=== PATIENT | female | born 1940 | race Two or more races ===

== ENCOUNTER 2018-03-25 07:26 | Day surgery (SDC) | payer OTHER ==
[~2018-03-25] VITALS: Ht 165.1 cm; Wt 52.2 kg
[2018-03-25] VITALS (9 sets, daily range): BP systolic 134–163; BP diastolic 65–84
[~2018-03-25 07:26] MED LIST: BSS 15ml BTL ONE; BSS 500ml btl ONE; Dexamethasone 4mg/ml vial ONE; EPINEPHrine 1mg/1ml Amp ONE; Lidocaine 1% MPF 10mg/ml 5ml ONE; Povidone-Iodine 5% opth solution ONE; Sodium Hyaluronate 14 mg/ml 0.85ml ONE
--- NOTE | 2018-03-25 07:40 | Pre-Procedure Note/Attestation ---
Pre-Procedure Note/Attestation Complete Prior to Procedure Planned Procedure: left Procedure Narrative: cataract extraction with implant left eye Indications for Procedure Pre-Operative Diagnosis: cataract left eye Attestation I attest that I discussed the nature of the procedure; its benefits; risks and complications; and alternatives (and the risks and benefits of such alternatives ), prior to the procedure, with the patient (or the patient's legal ict sales representative). I attest that, if there was a reasonable possibility of needing a blood transfusion, the patient (or the patient's legal ict sales representative) was given the [facility] standardized written summary, pursuant to the Robert Carmenza Blood Safety Act ([place] Health and Safety Code # 1645, as amended). I attest that I re-evaluated the patient just prior to the surgery and that there has been no change in the patient's H&P, except as documented below: Luis Chung MD Mar 25, 2018 07:40
[2018-03-25] MEDS ORDERED: Akten 3.5% 1ml Btl ONE (08:03)
[2018-03-25] MEDS ORDERED: Vigamox Opth Soln 3ml ONE (08:04)
[2018-03-25] MEDS ORDERED: Tropicamide 1% Opth 15ml Soln ONE (08:04)
[2018-03-25] MEDS ORDERED: Flurbiprofen 0.03% Opth Sol 2.5ml ONE (08:04)
[2018-03-25] MEDS ORDERED: Phenylephrine 2.5% Op 2ml Soln ONE (08:04)
[2018-03-25] MEDS ORDERED: Tobradex Opth Susp 2.5ml ONE (08:04)
[2018-03-25] MEDS: Vigamox Opth Soln 3ml LEFT EYE SCH ×3 (08:07→08:39)
[2018-03-25] MEDS: Flurbiprofen 0.03% Opth Sol 2.5ml LEFT EYE SCH ×3 (08:08→08:39)
[2018-03-25] MEDS: Tobradex Opth Susp 2.5ml LEFT EYE SCH ×3 (08:08→08:39)
[2018-03-25] MEDS: Tropicamide 1% Opth 15ml Soln LEFT EYE SCH ×3 (08:09→08:38)
[2018-03-25] MEDS: Phenylephrine 2.5% Op 2ml Soln LEFT EYE SCH ×3 (08:10→08:38)
[2018-03-25] MEDS: Akten 3.5% 1ml Btl LEFT EYE SCH ×3 (08:10→08:40)
[2018-03-25] MEDS ORDERED: LR 1000ml ONE (09:00)
[2018-03-25] MEDS ORDERED: Sterile Water Irrig 1000ml IRRIG ONE (09:00)
[2018-03-25] MEDS ORDERED: ASPIRIN EC81 MG ORAL (09:00)
[2018-03-25] MEDS ORDERED: Propofol 200mg/20ml IV ONE (09:00)
[2018-03-25] MEDS ORDERED: NS Irrig 1000ml ONE (09:00)
[2018-03-25] MEDS ORDERED: MULTIVITAMINS1 EA11 ORAL (09:01)
[2018-03-25] MEDS ORDERED: HYDROCHLOROTHIA25 MG ORAL (09:03)
[2018-03-25] MEDS ORDERED: METOPROLOL SUCC25 MG ORAL (09:07)
--- NOTE | 2018-03-25 09:09 | Anethesia Preoperative Eval ---
Anesthesia Pre-op PMH/ROS General Date of Evaluation: Mar 25, 2018 Time of Evaluation: 09:06 Anesthesiologist: Shahnaz Adkins CRNA ASA Score: ASA 1 Mallampati Score Class I : Soft palate, uvula, fauces, pillars visible Class II: Soft palate, uvula, fauces visible Class III: Soft palate, base of uvula visible Class IV: Only hard plate visible Mallampati Classification: Class II Surgeon: Sheldon Diagnosis: LEFT eye cataract Surgical Procedure: LEFT eye catract extraction IOL Anesthesia History: none Family History: no anesthesia problems Allergies: Coded Allergies: PEANUT (Verified Allergy, Intermediate, throat closes up, 03/25/18) SULFA (SULFONAMIDE ANTIBIOTICS) (Verified Allergy, Intermediate, rash; throat closes up, 03/25/18) Past Medical History Cardiovascular: Reports: HTN Anesthesia Pre-op Phys. Exam Physician Exam Last Vital Signs Date Time Temp Pulse Resp B/P (MAP) Pulse Ox O2 Delivery O2 Flow Rate FiO2 03/25/18 08:51 Room Air 03/25/18 08:29 97.3 90 18 163/78 (106) 97 97.3 Airway Exam Mallampati Score: Class I Shahnaz March CRNA Mar 25, 2018 09:09
[2018-03-25] MEDS ORDERED: ATORVASTATIN CA80 MG ORAL (09:10)
[2018-03-25] MEDS ORDERED: Evista PO (09:10)
[2018-03-25] MEDS ORDERED: Midazolam 2mg/2ml Inj ONE (09:11)
[2018-03-25] MEDS ORDERED: Plendil PO (09:11)
[2018-03-25] MEDS ORDERED: fentaNYL 100 mcg/2 mL IV ONE (09:11)
--- NOTE | 2018-03-25 09:40 | Brief Operative Note ---
Immediate Post Operative Note Operative Note Pre-op Diagnosis: cataract left eye Procedure: phacoemulsification of cataract with implant left eye Post-op Diagnosis: same as pre-op Surgeon: luis carlson Veneer Marker: none Anesthesiologist: shelley bar crna Anesthesia: MAC Specimen: none Complications: none Condition: stable Fluids: none Estimated Blood Loss: none Drains: none Implant(s) used?: Yes Luis Carlson MD Mar 25, 2018 09:40
--- NOTE | 2018-03-25 09:45 | Immediate Post-Op Evaluation ---
Immediate Post-Op Evalulation Immediate Post-Op Evalulation Procedure: LEFT eye cataract extration, IOL Date of Evaluation: Mar 25, 2018 Time of Evaluation: 09:43 IV Fluids: LR Blood Products: 300 Estimated Blood Loss: 0 Urinary Output: n/a Blood Pressure Systolic: 161 Blood Pressure Diastolic: 65 Pulse Rate: 78 Respiratory Rate: 22 O2 Sat by Pulse Oximetry: 98 Temperature (Fahrenheit): 98 Nausea: No Vomiting: No Complications none Patient Status: awake Hydration Status: adequate Shahnaz Macrh CRNA Mar 25, 2018 09:45
--- NOTE | 2018-03-25 10:28 | 48 Hour Post Anesthesia Eval ---
Post Anesthesia Evaluation Procedure: LEFT eye cataract extration, IOL Date of Evaluation: Mar 25, 2018 Time of Evaluation: 10:26 Blood Pressure Systolic: 160 0: 72 Pulse Rate: 74 Respiratory Rate: 22 Temperature (Fahrenheit): 97.8 O2 Sat by Pulse Oximetry: 96 Airway: patent Nausea: No Vomiting: No Pain Intensity: 0 Hydration Status: adequate Cardiopulmonary Status: VSS, no distress Mental Status/LOC: patient returned to baseline Follow-up Care/Observations: none Post-Anesthesia Complications: none Follow-up care needed: ready to discharge Shahnaz March CRNA Mar 25, 2018 10:28
--- NOTE | 2018-03-25 16:30 | Operative Note - Dictated ---
DATE OF OPERATION: 03/25/2018 PREOPERATIVE DIAGNOSIS: Cataract, left eye. POSTOPERATIVE DIAGNOSIS: Cataract, left eye. PROCEDURE: Phacoemulsification cataract of the left eye with placement of posterior chamber intraocular lens. SURGEON: uLis Chung M.D. FOUR H CLUB AGENT: None. ANESTHESIA: MAC/topical. ANESTHESIOLOGIST: , REEL CART OPERATOR INDICATION FOR PROCEDURE: Poor vision, left eye. DESCRIPTION OF FINDINGS: Nuclear sclerotic and cortical cataract, left eye. DESCRIPTION OF PROCEDURE: The patient received a topical anesthetic block consisting of 3.5% Akten eye drops. The eye was prepped and draped in usual manner. A lid speculum was placed. An operating Zeiss microscope was positioned. A temporal corneal groove was made with the janet blade. A SuperSharp blade made a stab incision at the 6 o'clock position. A 0.1 mL of 1% nonpreserved intracameral lidocaine was injected. Healon was instilled into the anterior chamber and a 2.5/2.8 mm trapezoidal janet was used to complete the temporal corneal wound. A cystotome was used to create an anterior capsular flap. Utrata forceps were used to complete the capsulorrhexis. BSS on a cannula was used to hydrodissect the nucleus. The lens nucleus phacoemulsified in a phaco-fracture technique. Remaining cortical material was removed with the I/A and the posterior capsule was polished with the I/A on Cap vac. Healon was instilled in a capsular bag and anterior chamber and an Cook foldable one-piece pre-loaded posterior chamber intraocular lens model PCB00, power 20.0 diopter, serial #[id number] was placed in the capsular bag. The I/A tip was used to remove the Healon and position the lens. The wound edge was hydrated with BSS and a blunt-tipped cannula. The wound was checked and found to be watertight. The lid speculum was removed and a drop of TobraDex and Vigamox was placed. A clear plastic shield was taped over the eye. The patient tolerated the procedure well and left the operating room in good condition. Luis Chung M.D. ([facility] [place]) DR: MONICA JOB#: [id number] CC:
== END 2018-03-25 10:30 | disposition home or self-care (01) ==
LOC: SUR 07:26
DX: H25.812 Combined forms of age-related cataract, left eye (principal); I10 Essential (primary) hypertension; E78.5 Hyperlipidemia, unspecified; M81.0 Age-related osteoporosis without current pathological fracture; F17.210 Nicotine dependence, cigarettes, uncomplicated; L57.0 Actinic keratosis; L81.4 Other melanin hyperpigmentation; J44.9 Chronic obstructive pulmonary disease, unspecified; E78.00 Pure hypercholesterolemia, unspecified; R73.03 Prediabetes; E83.52 Hypercalcemia; Z90.10 Acquired absence of unspecified breast and nipple; Z85.3 Personal history of malignant neoplasm of breast; Z88.2 Allergy status to sulfonamides; Z91.010 Allergy to peanuts; Z79.82 Long term (current) use of aspirin
CPT/HCPCS: 66984; J0171; J1100; J2250; J2704; J3010; J7120; V2632; 94003; 94150

== ENCOUNTER 2018-05-27 05:42 | Day surgery (SDC) | payer OTHER ==
[2018-05-27] VITALS (8 sets, daily range): BP systolic 142–163; BP diastolic 69–89
[~2018-05-27] VITALS: Ht 30.5 cm; Wt 0.5 kg
--- NOTE | 2018-05-27 05:41 | Pre-Procedure Note/Attestation ---
Pre-Procedure Note/Attestation Complete Prior to Procedure Planned Procedure: right Procedure Narrative: cataract extraction with implant right eye Indications for Procedure Pre-Operative Diagnosis: cataract right eye Attestation I attest that I discussed the nature of the procedure; its benefits; risks and complications; and alternatives (and the risks and benefits of such alternatives ), prior to the procedure, with the patient (or the patient's legal mechanical service representative). I attest that, if there was a reasonable possibility of needing a blood transfusion, the patient (or the patient's legal mechanical service representative) was given the [facility] standardized written summary, pursuant to the Robert Leal Blood Safety Act ([place] Health and Safety Code # 1645, as amended). I attest that I re-evaluated the patient just prior to the surgery and that there has been no change in the patient's H&P, except as documented below: Luis Chung MD May 27, 2018 05:41
[~2018-05-27 05:42] MED LIST changes: +ASPIRIN EC81 MG ORAL; +ATORVASTATIN CA80 MG ORAL; -BSS 15ml BTL ONE; -BSS 500ml btl ONE; -Dexamethasone 4mg/ml vial ONE; -EPINEPHrine 1mg/1ml Amp ONE; +Evista PO; +HYDROCHLOROTHIA25 MG ORAL; -Lidocaine 1% MPF 10mg/ml 5ml ONE; +METOPROLOL SUCC25 MG ORAL; +MULTIVITAMINS1 EA11 ORAL; +Plendil PO; -Povidone-Iodine 5% opth solution ONE; -Sodium Hyaluronate 14 mg/ml 0.85ml ONE
[2018-05-27] MEDS ORDERED: Tropicamide 1% Opth 15ml Soln ONE (06:30)
[2018-05-27] MEDS ORDERED: Phenylephrine 2.5% Op 2ml Soln ONE (06:30)
[2018-05-27] MEDS ORDERED: Akten 3.5% 1ml Btl ONE (06:30)
[2018-05-27] MEDS ORDERED: Tobradex Opth Susp 2.5ml ONE (06:30)
[2018-05-27] MEDS ORDERED: Flurbiprofen 0.03% Opth Sol 2.5ml ONE (06:31)
[2018-05-27] MEDS ORDERED: Vigamox Opth Soln 3ml ONE (06:31)
[2018-05-27] MEDS: Tropicamide 1% Opth 15ml Soln RIGHT EYE SCH ×3 (06:50→07:10)
[2018-05-27] MEDS: Phenylephrine 2.5% Op 2ml Soln RIGHT EYE SCH ×3 (06:51→07:10)
[2018-05-27] MEDS: Flurbiprofen 0.03% Opth Sol 2.5ml RIGHT EYE SCH ×3 (06:51→07:10)
[2018-05-27] MEDS: Akten 3.5% 1ml Btl RIGHT EYE SCH ×3 (06:51→07:10)
[2018-05-27] MEDS: Tobradex Opth Susp 2.5ml RIGHT EYE SCH ×3 (06:51→07:10)
[2018-05-27] MEDS: Vigamox Opth Soln 3ml RIGHT EYE SCH ×3 (06:52→07:10)
[2018-05-27] MEDS ORDERED: EPINEPHrine 1mg/1ml Amp ONE (07:02)
[2018-05-27] MEDS ORDERED: Lidocaine 1% MPF 10mg/ml 5ml ONE (07:02)
[2018-05-27] MEDS ORDERED: Povidone-Iodine 5% opth solution ONE (07:03)
[2018-05-27] MEDS ORDERED: Dexamethasone 4mg/ml vial ONE (07:03)
[2018-05-27] MEDS ORDERED: BSS 500ml btl ONE (07:03)
[2018-05-27] MEDS ORDERED: acetaZOLAMIDE 500mg Inj ONE (07:03)
[2018-05-27] MEDS ORDERED: Carbachol 0.01% Op Soln 1.5ml vial ONE (07:03)
[2018-05-27] MEDS ORDERED: BSS 15ml BTL ONE (07:03)
[2018-05-27] MEDS ORDERED: Sodium Hyaluronate 14 mg/ml 0.85ml ONE (07:04)
[2018-05-27] MEDS ORDERED: Midazolam 2mg/2ml Inj ONE (07:05)
[2018-05-27] MEDS ORDERED: fentaNYL 100 mcg/2 mL IV ONE (07:05)
[2018-05-27] MEDS ORDERED: Propofol 200mg/20ml IV ONE (07:05)
[2018-05-27] MEDS ORDERED: NS Irrig 1000ml ONE (07:30)
[2018-05-27] MEDS ORDERED: Sterile Water Irrig 1000ml IRRIG ONE (07:30)
[2018-05-27] MEDS ORDERED: LR 1000ml ONE (07:30)
--- NOTE | 2018-05-27 07:34 | Anethesia Preoperative Eval ---
Anesthesia Pre-op PMH/ROS General Date of Evaluation: May 27, 2018 Time of Evaluation: 07:32 Anesthesiologist: Rere ASA Score: ASA 3 Mallampati Score Class I : Soft palate, uvula, fauces, pillars visible Class II: Soft palate, uvula, fauces visible Class III: Soft palate, base of uvula visible Class IV: Only hard plate visible Mallampati Classification: Class II Surgeon: Sheldon Diagnosis: R eye cataract Surgical Procedure: R eye cataract extraction Anesthesia History: none Social History: current smoker Family History: no anesthesia problems Allergies: Coded Allergies: PEANUT (Verified Allergy, Intermediate, throat closes up, 03/25/18) SULFA (SULFONAMIDE ANTIBIOTICS) (Verified Allergy, Intermediate, rash; throat closes up, 03/25/18) Medications: see eMAR Patient NPO?: Yes Past Medical History Cardiovascular: Reports: HTN; Denies: CAD, [place], valve dz, arrhythmia, other Pulmonary: Reports: COPD Gastrointestinal/Genitourinary: Reports: GERD; Denies: CRI, ESRD, other Neurologic/Psychiatric: Reports: depression/anxiety; Denies: dementia, CVA, TIA, other Endocrine: Denies: DM, hypothyroidism, steroids, other HEENT: Reports: cataract (L), cataract (R) - s/p Sx Hematology/Immune: Reports: other - H/o breast CA s/p Sx and chemo; Denies: anemia, DVT, bleeding disorder Musculoskeletal/Integumentary: Reports: DJD; Denies: OA, RA, DDD, edema, other PMH Narrative: as above PSxH Narrative: L eye cataract, Mastectomy Anesthesia Pre-op Phys. Exam Physician Exam Last Vital Signs Date Time Temp Pulse Resp B/P (MAP) Pulse Ox O2 Delivery O2 Flow Rate FiO2 05/27/18 06:41 Room Air 05/27/18 06:24 98.3 84 18 152/78 97 98.3 Constitutional: NAD Neurologic: CN 2-12 intact Cardiovascular: RRR, no M/R/G Respiratory: CTA Airway Exam Mallampati Score: Class II MO: full Neck: stiff ROM: limited Teeth: intact Dentures: no upper, no lower Anesthesia Pre-op A/P Labs see chart Risk Assessment & Plan Assessment: ASA 3 Plan: MAC Status Change Before Surgery: No Pre-Antibiotics Drug: none Americo Jernigan MD May 27, 2018 07:34
[2018-05-27] MEDS ORDERED: LR 1000ml 1,000 ML IVLG SCH (08:01)
[2018-05-27] MEDS ORDERED: fentaNYL 100 mcg/2 mL IV PRN (08:15)
[2018-05-27] MEDS ORDERED: DiphenhydrAMINE 50mg/ml Inj IVP PRN (08:15)
--- NOTE | 2018-05-27 08:45 | Immediate Post-Op Evaluation ---
Immediate Post-Op Evalulation Immediate Post-Op Evalulation Procedure: R eye cataract extraction with IOL Date of Evaluation: May 27, 2018 Time of Evaluation: 08:08 IV Fluids: 200 Blood Products: none Estimated Blood Loss: none Urinary Output: none Blood Pressure Systolic: 156 Blood Pressure Diastolic: 78 Pulse Rate: 84 Respiratory Rate: 22 O2 Sat by Pulse Oximetry: 98 Temperature (Fahrenheit): 97.6 Pain Score (1-10): 1 Nausea: No Vomiting: No Complications none Patient Status: awake, patent, none Hydration Status: adequate Americo Jernigan MD May 27, 2018 08:45
--- NOTE | 2018-05-27 09:00 | Brief Operative Note ---
Immediate Post Operative Note Operative Note Pre-op Diagnosis: cataract right eye Procedure: phacoemulsification of cataract with implant left eye Post-op Diagnosis: same as pre-op Surgeon: luis carlson Pressing Machine Operator: none Anesthesiologist: deborah bolden md Anesthesia: MAC Specimen: none Complications: none Condition: stable Fluids: none Estimated Blood Loss: none Drains: none Implant(s) used?: Yes Luis Carlson MD May 27, 2018 09:00
--- NOTE | 2018-05-27 09:10 | 48 Hour Post Anesthesia Eval ---
Post Anesthesia Evaluation Procedure: R eye cataract extraction with IOL Date of Evaluation: May 27, 2018 Time of Evaluation: 09:09 Blood Pressure Systolic: 142 0: 78 Pulse Rate: 82 Respiratory Rate: 20 Temperature (Fahrenheit): 97.6 O2 Sat by Pulse Oximetry: 98 Airway: patent Nausea: No Vomiting: No Pain Intensity: 1 Hydration Status: adequate Cardiopulmonary Status: stable Mental Status/LOC: patient returned to baseline Follow-up Care/Observations: n/a Post-Anesthesia Complications: none Follow-up care needed: ready to discharge Americo Jernigan MD May 27, 2018 09:10
--- NOTE | 2018-05-27 19:00 | Operative Note - Dictated ---
DATE OF OPERATION: 05/27/2018 PREOPERATIVE DIAGNOSIS: Nuclear sclerotic and cortical cataract, right eye. POSTOPERATIVE DIAGNOSIS: Nuclear sclerotic and cortical cataract, right eye. PROCEDURE: Phacoemulsification of cataract of right eye with placement of posterior chamber intraocular lens. SURGEON: Luis Chung M.D. ([facility] [place] WATER TREATMENT SPECIALIST: None. ANESTHESIA: MAC/topical. ANESTHESIOLOGIST: Americo Jernigan M.D. INDICATION FOR PROCEDURE: Poor vision, right eye. DESCRIPTION OF FINDINGS: Dense nuclear sclerotic and cortical cataract, right eye. DESCRIPTION OF PROCEDURE: The patient received a topical anesthetic block consisting of 3.5% Akten eyedrops. The eye was then prepped and draped in usual manner. A lid speculum was placed. An operating Zeiss microscope was positioned. The temporal corneal groove was made with a janet blade. A SuperSharp blade made a stab incision at the 12 o'clock position. A 0.1 mL of 1% nonpreserved intracameral lidocaine was injected. Healon was instilled into the anterior chamber and a 2.5/2.8 mm trapezoidal janet blade was used to complete the temporal corneal wound. A cystotome was used to create an anterior capsular flap. Utrata forceps were used to complete the capsulorrhexis. BSS on a cannula was used to hydrodissect the nucleus. The lens nucleus was phacoemulsified in a phaco-fracture technique. Remaining cortical material was removed with the I/A and the posterior capsule was polished with the I/A on Cap vac. Healon was instilled in a capsular bag and anterior chamber, and an Cook foldable one-piece preloaded posterior chamber intraocular lens model PCB00, power 21.0 diopter, serial #[id number] was placed in the capsular bag. The I/A tip was used to remove the Healon and position the lens. The wound edge was hydrated with BSS and a blunt-tipped cannula. The wound was checked and found to be watertight. The lid speculum was removed and a drop of TobraDex and Vigamox were placed. A clear plastic shield was taped over the eye. The patient tolerated the procedure well and left the operating room in good condition. Luis Chung M.D. ([facility]) DR: Kurt JOB#: [id number] CC: ALEX
[2018-05-28] MEDS ORDERED: Vigamox Opth Soln 3ml RIGHT EYE SCH (07:00)
[2018-05-28] MEDS ORDERED: Tobradex Opth Susp 2.5ml RIGHT EYE SCH (07:00)
[2018-05-28] MEDS ORDERED: Flurbiprofen 0.03% Opth Sol 2.5ml RIGHT EYE SCH (07:00)
[2018-05-28] MEDS ORDERED: Tropicamide 1% Opth 15ml Soln RIGHT EYE SCH (07:00)
[2018-05-28] MEDS ORDERED: Akten 3.5% 1ml Btl RIGHT EYE SCH (07:00)
[2018-05-28] MEDS ORDERED: Phenylephrine 2.5% Op 2ml Soln RIGHT EYE SCH (07:00)
== END 2018-05-27 09:10 | disposition home or self-care (01) ==
LOC: SUR 05:42
DX: H25.811 Combined forms of age-related cataract, right eye (principal); I10 Essential (primary) hypertension; M81.0 Age-related osteoporosis without current pathological fracture; J44.9 Chronic obstructive pulmonary disease, unspecified; E78.00 Pure hypercholesterolemia, unspecified; K21.9 Gastro-esophageal reflux disease without esophagitis; F32.9 Major depressive disorder, single episode, unspecified; F41.9 Anxiety disorder, unspecified; M19.90 Unspecified osteoarthritis, unspecified site; L81.4 Other melanin hyperpigmentation; L57.0 Actinic keratosis; Z85.3 Personal history of malignant neoplasm of breast; Z88.2 Allergy status to sulfonamides; Z91.010 Allergy to peanuts
CPT/HCPCS: 66984; J0171; J1100; J2250; J2704; J3010; V2632; 94003; 94150